=== PATIENT | female | born 1970 | race Caucasian/White ===

== ENCOUNTER 2020-05-31 17:42 | Inpatient (IN) | payer SELFPAY ==
[2020-05-31 17:48] VITALS: BP 118/59; PULSE 101; RESP 18; TEMP 36.6; O2SAT 97; BMI 23.6
[2020-05-31 17:50] VITALS: BP 147/91; PULSE 101; RESP 16; O2SAT 99
[2020-05-31 18:30] LABS: HCG Qualitative Urine. Negative (Negative)
[2020-05-31 18:49] LABS: Basophils # 0.1 10^3/uL (0.0-0.1); Basophils % 1.1 %; Eosinophils # 0.6 10^3/uL (0.0-0.8); Eosinophils % 5.3 %; Hematocrit 40.8 % (37.0-47.0); Hemoglobin 13.6 g/dL (11.5-15.3); Lymphocytes # 4.2 10^3/uL (0.8-4.8); Lymphocytes % 39.6 %; Mean Corpuscular HGB Conc 33.3 g/dL (30.0-36.0); Mean Corpuscular Hemoglobin 29.1 pg (28.0-34.0); Mean Corpuscular Volume 87.4 fL (81-99); Mean Platelet Volume 10.1 fL (7.4-10.4); Monocytes # 0.8 10^3/uL (0.2-0.9); Monocytes % 7.7 %; Neutrophils # 4.81 10^3/uL (1.8-7.7); Neutrophils % 46.1 %; Nucleated Red Blood Cells % 0 %; Platelet Count 255 10^3/cmm (130-400); Red Blood Count 4.67 10^6/uL (4.1-5.3); White Blood Count 10.5 10^3/uL (4.0-10.0)
[2020-05-31 19:17] LABS: Alanine Aminotransferase 37 U/L (0-33); Alkaline Phosphatase 121 IU/L (35-105); Anion Gap 13.6 (5-19); Aspartate Amino Transferase 50 U/L (0-32); Blood Urea Nitrogen 14 mg/dL (6-20); Calcium 8.9 mg/dL (8.5-10.5); Carbon Dioxide 25 mmol/L (22-29); Chloride 105 mmol/L (98-107); Globulin 2.9 g/dL (1.3-4.6); Glomerular Filtration Rate 106.7 mL/min (90-130); Glucose 104 mg/dL (65-115); Osmolality Calculated 291 mOsm/kg (285-295); Potassium 3.6 mmol/L (3.5-5.1); Sodium 140 mmol/L (136-145); Thyroid Stimulating Hormone 1.01 uIU/mL (0.27-4.20); Total Bilirubin 0.5 mg/dL (0.15-1.2); Total Protein 6.9 g/dL (6.6-8.7)
[2020-05-31 19:19] LABS: Acetaminophen < 5.0 ug/mL (10-30); Alcohol Level < 10 mg/dL (0-10); Salicylate < 0.3 mg/dL (3-10)
[2020-05-31 19:33] LABS: Add Urine Microscopic? NO
[2020-05-31 19:34] LABS: Blood Urine Neg (Negative); Glucose Urine UA Norm (Normal); Ketones Urine 1+ (Negative); Nitrate Urine Negative (Negative); Protein Urine Neg (Negative); Urine Appearance Clear (CLEAR); Urine Color Yellow (Yellow); pH Urine 6 (5-7)
[2020-05-31 19:35] LABS: Bilirubin Urine 1+ (Negative); Leukocyte Esterase Urine Negative (Negative); Urobilinogen Urine Norm (Negative)
[2020-05-31 19:38] VITALS: BP 110/75; PULSE 91; RESP 22; TEMP 36.9; O2SAT 97
[2020-05-31 19:43] LABS: Amphetamines Screen Urine Positive (Negative); Barbiturates Screen Urine Negative (Negative); Benzodiazepines Screen Urine Negative (Negative); Cocaine Screen Urine Negative (Negative); Opiate Screen Urine Negative (Negative); PCP Screen Urine Negative (Negative); THC Screen Urine Positive (Negative)
[2020-05-31 20:02] VITALS: BP 120/65; PULSE 94; RESP 25; TEMP 36.6; O2SAT 97
[2020-05-31] MEDS: hyDROXYzine 25 mg Capsule 50 MG PO (20:41)
[2020-05-31] MEDS: trazodone 50 mg Tablet PO (20:41)
[2020-05-31] MEDS: OLANZapine 5 mg ODT PO (20:41)
[2020-05-31 22:00] VITALS: BP 120/65; PULSE 94; RESP 25; TEMP 36.6; O2SAT 97
--- NOTE | 2020-06-01 00:06 | W.ED.PSYCH ---
HPI - Psych General: Chief Complaint: Psychiatric Symptoms Stated Complaint: SI Time Seen by Provider: 05/31/20 17:53 Source: patient Mode of arrival: ambulatory Limitations: no limitations History of Present Illness: HPI Narrative: Patient is a 50-year-old female patient who presented to the emergency department with suicidal ideation. She states that her plan is to jump in front of a moving diesel truck and be killed. She admits to auditory and visual hallucinations. She says she thought the visual hallucinations were spirits initially. The auditory hallucinations are telling her that she will never get better. She does admits to methamphetamine and marijuana use. She would like some help as she thinks she is overwhelmed now. complaint: suicidal ideation and feels depressed Duration: constant and getting worse History of same: Yes Relieving factors: none Exacerbating factors: drug use Context: recent drug abuse Associated psychiatric symptoms: depression and suicidal ideation Associated symptoms: Reports auditory hallucinations, visual hallucinations, depression and suicidal ideation; Deny delusions, homicidal ideation or racing thoughts Treatments prior to arrival: none If self harm: admits thoughts of self harm and has plan Details of plan: Plans to jump in front of a diesel truck Review of Systems General: Reports: 10 or more systems reviewed and unremarkable except in HPI and below Const: Denies: fever(s), chills or body aches Card: Denies: palpitations, irregular heart rhythm, edema or swelling of feet/ankles Resp: Denies: dyspnea, productive cough or non-productive cough GI: Denies: abdominal pain, nausea or vomiting : Denies: flank pain, difficulty voiding, dysuria, urinary frequency, urinary urgency or urinary hesitancy Musc: Denies: neck pain, back pain or extremity swelling Skin/Breast: Denies: rash, pruritus or erythema Neuro: Denies: headache(s), numbness in extremities or weakness in extremities Psych: Reports: depression, visual hallucinations, auditory hallucinations and suicidal ideation; Denies: homicidal ideation Endo: Denies: polyuria, polydipsia or tired all the time PFS ED PFSH: Social History (Reviewed 06/01/20 @ 00:08 by Michael Clement MD, [facility] [place]) Smoking and tobacco status: current every day smoker Alcohol intake: former Female Reproductive History: Date of last menstrual period: 04/11/17 Physical Exam Const: COMMON NORMALS: no acute distress, average body habitus, patient oriented x3, no limitations, healthy appearing, alert and well nourished HENMT: COMMON NORMALS: normocephalic, atraumatic and moist oral mucous membranes HEAD & SCALP: normocephalic and atraumatic Neck/C-Spine: COMMON NORMALS: no meningeal signs and no JVD Resp: COMMON NORMALS: normal respiratory effort, No retractions, No use of accessory muscles, clear to auscultation bilaterally and percussion normal AUSCULTATION: clear to auscultation bilaterally PERCUSSION: percussion normal Cardio: COMMON NORMALS: no JVD, regular rate, regular rhythm, S1 normal heart sound present, S2 normal heart sound present, No gallops present (Cardio), No clicks present (Cardio), No murmurs present (Cardio), No rub (Cardio) and Peripheral pulses 2+ throughout RATE: regular rate RHYTHM: regular rhythm HEART SOUNDS: S1 normal heart sound present and S2 normal heart sound present PERIPHERAL PULSES: Peripheral pulses 2+ throughout GI: COMMON NORMALS: Normal to inspection, nondistended, normoactive bowel sounds present, Soft to palpation, non-tender, No hepatosplenomegaly present, no masses and no bruits PALPATION: Yes Soft to palpation and Yes No hepatosplenomegaly present Extremity: COMMON NORMALS: normal to inspection, full ROM, capillary refill normal, no calf tenderness and no pedal edema Neuro: COMMON NORMALS: patient oriented x3 SENSORIUM/ORIENTATION: Yes alert MENINGEAL SIGNS: Yes no meningeal signs Psych: ATTITUDE: Yes bizarre ACTIVITY/MOTOR BEHAVIOR: Yes appropriate eye contact, Yes fidgeting and Yes hyperactivity SPEECH: Yes excessive THOUGHT CONTENT: No delusions Skin: COMMON NORMALS: no rashes or lesions noted, no wounds, turgor normal, no jaundice, no petechiae and no mottling GENERAL SKIN EXAM: no rashes or lesions noted and turgor normal MDM - Psych MDM Narrative: Medical decision making narrative: 50-year-old female patient to the emergency department with suicidal ideation. She is medically cleared and admitted to the neuropsychiatric unit for further evaluation and management. Medical Records: Attestation: I reviewed the patient's medical records. Lab Data: Attestation: I reviewed the patient's lab results. Labs: Lab Results 05/31/20 05/31/20 05/31/20 Range/Units 18:02 18:22 18:22 WBC (4.0-10.0) 10^3/ uL RBC (4.1-5.3) 10^6/u L Hgb (11.5-15.3) g/dL Hct (37.0-47.0) % MCV (81-99) fL MCH (28.0-34.0) pg MCHC (30.0-36.0) g/dL RDW (12.1-15.1) % Plt Count (130-400) 10^3/c mm MPV (7.4-10.4) fL Neut % (Auto) % Lymph % (Auto) % [place] % (Auto) % Eos % (Auto) % Baso % (Auto) % Neut # (Auto) (1.8-7.7) 10^3/u L Lymph # (Auto) (0.8-4.8) 10^3/u L [place] # (Auto) (0.2-0.9) 10^3/u L Eos # (Auto) (0.0-0.8) 10^3/u L Baso # (Auto) (0.0-0.1) 10^3/u L Nucleated RBC % (a uto) % Nucleated RBCs # /100WBC Sodium (136-145) mmol/L Potassium (3.5-5.1) mmol/L Chloride (98-107) mmol/L Carbon Dioxide (22-29) mmol/L Anion Gap (5-19) BUN (6-20) mg/dL Creatinine (0.5-0.9) mg/dL GFR Calculation (90-130) mL/min Glucose (65-115) mg/dL Calculated Osmolal ity (285-295) mOsm/k g Calcium (8.5-10.5) mg/dL Total Bilirubin (0.15-1.2) mg/dL AST (0-32) U/L ALT (0-33) U/L Alkaline Phosphata se (35-105) IU/L Total Protein (6.6-8.7) g/dL Albumin (3.5-5.2) g/dL Globulin (1.3-4.6) g/dL TSH (0.27-4.20) uIU/ mL HCG, Qual Negative (Negative) Urine Color Yellow (Yellow) Urine Appearance Clear (CLEAR) Urine pH 6 (5-7) Ur Specific Gravit y 1.020 (1.005-1.030) Urine Protein Neg (Negative) Urine Glucose (UA) Norm (Normal) Urine Ketones 1+ H (Negative) Urine Blood Neg (Negative) Urine Nitrate Negative (Negative) Urine Bilirubin 1+ H (Negative) Urine Urobilinogen Norm (Negative) mg/dL Ur Leukocyte Vania ase Negative (Negative) Salicylates (3-10) mg/dL Urine Opiates Scre en Negative (Negative) ng/mL Acetaminophen (10-30) ug/mL Ur Barbiturates Sc reen Negative (Negative) ng/mL Ur Phencyclidine S crn Negative (Negative) ng/mL Ur Amphetamines Sc reen Positive H (Negative) ng/mL U Benzodiazepines Scrn Negative (Negative) ng/mL Urine Cocaine Scre en Negative (Negative) ng/mL U Marijuana (THC) Screen Positive H (Negative) ng/mL Ethyl Alcohol (0-10) mg/dL 05/31/20 05/31/20 Range/Units 18:37 18:37 WBC 10.5 H (4.0-10.0) 10^3/ uL RBC 4.67 (4.1-5.3) 10^6/u L Hgb 13.6 (11.5-15.3) g/dL Hct 40.8 (37.0-47.0) % MCV 87.4 (81-99) fL MCH 29.1 (28.0-34.0) pg MCHC 33.3 (30.0-36.0) g/dL RDW 13.0 (12.1-15.1) % Plt Count 255 (130-400) 10^3/c mm MPV 10.1 (7.4-10.4) fL Neut % (Auto) 46.1 % Lymph % (Auto) 39.6 % [place] % (Auto) 7.7 % Eos % (Auto) 5.3 % Baso % (Auto) 1.1 % Neut # (Auto) 4.81 (1.8-7.7) 10^3/u L Lymph # (Auto) 4.2 (0.8-4.8) 10^3/u L [place] # (Auto) 0.8 (0.2-0.9) 10^3/u L Eos # (Auto) 0.6 (0.0-0.8) 10^3/u L Baso # (Auto) 0.1 (0.0-0.1) 10^3/u L Nucleated RBC % (a uto) 0 % Nucleated RBCs # 0.0 /100WBC Sodium 140 (136-145) mmol/L Potassium 3.6 (3.5-5.1) mmol/L Chloride 105 (98-107) mmol/L Carbon Dioxide 25 (22-29) mmol/L Anion Gap 13.6 (5-19) BUN 14 (6-20) mg/dL Creatinine 0.6 (0.5-0.9) mg/dL GFR Calculation 106.7 (90-130) mL/min Glucose 104 (65-115) mg/dL Calculated Osmolal ity 291 (285-295) mOsm/k g Calcium 8.9 (8.5-10.5) mg/dL Total Bilirubin 0.5 (0.15-1.2) mg/dL AST 50 H (0-32) U/L ALT 37 H (0-33) U/L Alkaline Phosphata se 121 H (35-105) IU/L Total Protein 6.9 (6.6-8.7) g/dL Albumin 4.0 (3.5-5.2) g/dL Globulin 2.9 (1.3-4.6) g/dL TSH 1.01 (0.27-4.20) uIU/ mL HCG, Qual (Negative) Urine Color (Yellow) Urine Appearance (CLEAR) Urine pH (5-7) Ur Specific Gravit y (1.005-1.030) Urine Protein (Negative) Urine Glucose (UA) (Normal) Urine Ketones (Negative) Urine Blood (Negative) Urine Nitrate (Negative) Urine Bilirubin (Negative) Urine Urobilinogen (Negative) mg/dL Ur Leukocyte Vania ase (Negative) Salicylates < 0.3 L (3-10) mg/dL Urine Opiates Scre en (Negative) ng/mL Acetaminophen < 5.0 L (10-30) ug/mL Ur Barbiturates Sc reen (Negative) ng/mL Ur Phencyclidine S crn (Negative) ng/mL Ur Amphetamines Sc reen (Negative) ng/mL U Benzodiazepines Scrn (Negative) ng/mL Urine Cocaine Scre en (Negative) ng/mL U Marijuana (THC) Screen (Negative) ng/mL Ethyl Alcohol < 10 (0-10) mg/dL Discharge Plan Discharge Patient Disposition: Admitted As Inpatient Admit Provider: Good Kaur Clinical Impression: Suicidal ideation, Drug-induced psychotic disorder Condition: Stable Coding Level of Care Code ED Respiratory Assistant for Maxi Decker
[2020-06-01] MEDS: acetaminophen 325 mg Tablet 650 MG PO (02:22)
[2020-06-01 02:39] VITALS: BMI 23.6
[2020-06-01 06:00] VITALS: BP 97/60; PULSE 71; RESP 16; TEMP 36.6; O2SAT 95
--- NOTE | 2020-06-01 11:24 | P.HP_ITS ---
Providers/Chief Complaint Admitting Physician: Good Kaur DO Chief Complaint: SI HPI NPU History of Present Illness Katelin oRberts is a 50 year old female with reported past history of depression presented to the emergency department with suicidal ideation with plan to jump in front of a truck. Patient was positive for methamphetamine and THC on her urine drug screen at the time of initial evaluation. Emergency department medical evaluation was otherwise unremarkable. Patient reports longstanding depressive symptoms for several years but has been untreated for the past 8 years when she last took psychiatric medication was following up at [facility] [place]. Records are not available for these encounters. 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 Patient continues to report depressive symptoms, decreased energy and interest, low mood states, decreased appetite secondary to low mood although she currently reports increased appetite. Patient currently denies any suicidal ideation but reports intermittent suicidal ideation in the context of her ongoing depressive symptoms. Patient reports perceptual disturbances in the context of substance use but it is unclear with regards to any baseline auditory or visual hallucinations or delusions outside the use of substances. Patient is unable to communicate any past manic or hypomanic episodes outside the use of any substances. Patient reports traumatic experiences but denies any past or recent trauma related symptoms. Per above, patient has been off any medication for the past 8 years and has not been in contact with mental health. Review of Systems General: Reports: 10 or more systems reviewed and unremarkable except in HPI and below Meds NPU Home Medications Medication Instructions Recorded Confirmed Last Taken Type No Known Home Medications 05/31/19 05/31/20 Unknown History Allergies Allergy/AdvReac Type Severity Reaction Status Date / Time No Known Allergies Allergy Verified 07/25/19 15:47 PFSH NPU PFSH: Social History Smoking and tobacco status: current every day smoker Alcohol intake: former Other Psychiatric History: Other Psychiatric History: Last contact with mental health was in 2012 for medication management at [facility] [place] Reports past psychiatric hospitalizations with last psychiatric hospitalization several years ago Reports first suicide attempt at age 22 with attempted overdose, states last suicide attempt was in the past week Mental Status Exam MSE Comments: Tired appearing, disheveled, unkempt, appears older than stated age, long hair pulled back, calm, cooperative, good eye contact Psychomotor activity is neither increased nor decreased, no agitation Speech is somewhat slow, normal volume, spontaneous, fair articulation, not pressured I am depressed, congruent affect, not labile Alert and oriented to person, place, time, situation Memory and concentration appear to be fair to intact per interview Thought process, linear, no flight of ideas, no looseness of associations Thought content, no delusions, no hallucinations, no suicidal or homicidal ideation Insight and judgment appear to be fair Vitals/I&O/Wt Last Vital Signs Temp 97.8 F 06/01/20 06:00 Pulse 71 06/01/20 06:00 Resp 16 06/01/20 06:00 BP 97/60 06/01/20 06:00 Pulse Ox 95 06/01/20 06:00 Weight last 48 hrs Weight 53.07 kg Weight 53.07 kg Data NPU : 05/31/20 18:37 05/31/20 18:37 A&P Assessment and plan (1) Suicidal ideation: Status: Acute (2) Depressive disorder: Status: Acute (3) Polysubstance abuse: Status: Acute Additional A&P Information Ongoing depressive symptoms in the context of recent suicide attempt, suicidal ideation, near daily use of methamphetamine and cannabis, last treatment for depression with medication over 8 years ago, reports significant impairment secondary to depressive symptoms and substance use. INVOLUNTARY ADMIT to inpatient psychiatry START citalopram 10 mg daily targeting depressive symptoms Encourage patient to participate in unit activities to include group sessions, unit milieu Coordinate with social director for post discharge psychiatric and substance follow-up Involuntary Hold Information 96 Hour Hold: 96 Hour Involuntary Admission: Yes 96 Hour Hold Ending Date: 06/06/20 96 Hour Hold Ending Time: 00:01 Attestations NPU Medical Necessity Statement*: Psychiatric hospitalization required for observation for return of any suicidal ideation, behaviors as well as medication stabilization and coordination for safe discharge Anticipate hospital stay to exceed 2 midnights Time Spent in Patient Care: Greater than 35 minutes (>than 50% of time spent in counselling and/or direct pt care on unit) . Coding Level of Care Code Acute Jet Aircraft Servicer for Maxi Fwd Diagnoses Suicidal ideation R45.851 Depressive disorder F32.9 Polysubstance abuse F19.10
[2020-06-01] MEDS: citalopram 20 mg Tablet 10 MG PO (11:36)
[2020-06-01 13:04] VITALS: BP 101/73; PULSE 71; RESP 18; TEMP 36.5
[2020-06-01 19:59] VITALS: BP 109/67; PULSE 81; RESP 18; TEMP 37.2; O2SAT 97
[2020-06-02 06:00] VITALS: BP 113/74; PULSE 72; RESP 19; TEMP 36.5; O2SAT 96
[2020-06-02] MEDS: citalopram 20 mg Tablet 10 MG PO (08:26)
--- NOTE | 2020-06-02 13:15 | P.PN_ITS ---
Subjective NPU Subjective: Interval history: Reports some improvement although intermittent depressive symptoms exacerbated by ongoing life stress to include current unstable living arrangement. Denies any interval suicidal ideation Reports being compliant with her medication, denies any medication side effects Denies any interval psychotic symptoms. No reported interval behavioral disturbances Mental Status Exam MSE Comments: Appears older than stated age, appropriately groomed and dressed, calm, cooperative, good eye contact Psychomotor activity is somewhat decreased, no agitation Speech is somewhat slow, normal volume, spontaneous, fair articulation, not pressured I am okay, constricted affect, not labile Alert and oriented to person, place, time, situation Memory and concentration appear to be fair to intact per interview Thought process, linear, no flight of ideas, no looseness of associations Thought content, no delusions, no hallucinations, no suicidal or homicidal ideation Insight and judgment appear to be fair Vitals/I&O/Wt Last Vital Signs Temp 97.7 F 06/02/20 06:00 Pulse 72 06/02/20 06:00 Resp 19 H 06/02/20 06:00 BP 113/74 06/02/20 06:00 Pulse Ox 96 06/02/20 06:00 Weight last 48 hrs Weight 53.07 kg Weight 53.07 kg Data NPU : 05/31/20 18:37 05/31/20 18:37 A&P Assessment and plan (1) Suicidal ideation: Status: Acute (2) Depressive disorder: Status: Acute (3) Polysubstance abuse: Status: Acute Additional A&P Information Intermittent depressive symptoms, denies any interval suicidal ideation, continues to have unstable post discharge living arrangement, likely benefit from post discharge substance treatment CONTINUE current medication, continue to monitor Continue to coordinate with foster care social worker for post discharge follow-up Involuntary Hold Information 96 Hour Hold: 96 Hour Involuntary Admission: Yes 96 Hour Hold Ending Date: 06/06/20 96 Hour Hold Ending Time: 00:01 Attestations NPU Medical Necessity Statement*: Continues require psychiatric hospitalization for medication stabilization, coordination for safe discharge Coding Level of Care Code Acute Import Export Coordinator for Maxi Decker Diagnoses Suicidal ideation R45.851 Depressive disorder F32.9 Polysubstance abuse F19.10
[2020-06-02 14:00] VITALS: BP 102/62; PULSE 85; RESP 20; TEMP 36.6; O2SAT 95
--- NOTE | 2020-06-02 17:59 | PC.RESP ---
Smoking Cessation information sent to patient.
[2020-06-02 19:36] VITALS: BP 114/74; PULSE 81; RESP 18; TEMP 37.3; O2SAT 96
[2020-06-02] MEDS: trazodone 50 mg Tablet PO (20:59)
[2020-06-02] MEDS: hyDROXYzine 25 mg Capsule 50 MG PO (20:59)
[2020-06-03 06:00] VITALS: BP 116/72; PULSE 77; RESP 18; TEMP 36.7; O2SAT 95
[2020-06-03] MEDS: citalopram 20 mg Tablet 10 MG PO (07:22)
--- NOTE | 2020-06-03 10:38 | PM.NDC ---
Diagnoses at Discharge Discharge Diagnosis (1) Suicidal ideation: Status: Acute (2) Depressive disorder: Status: Acute (3) Polysubstance abuse: Status: Acute Reason for Visit Reason for Visit: SI Hospital Course Hospital Course 50-year-old female with reported past history of depression in the context of near daily methamphetamine use over the past 8 years presented to the emergency department with suicidal ideation with plan to jump in front of a truck. Patient's urine drug screen at the time of initial evaluation was positive for methamphetamine. Patient denied any current perceptual disturbances but reports past auditory and visual hallucinations in the context of methamphetamine use. Patient continued to report depressive symptoms at the time of her initial evaluation and was started on citalopram 10 mg daily targeting her depressive symptoms which she tolerated well with no reports of any medication side effects. Patient states that she had been off of any medication for almost 8 years since her last contact with mental health at [facility]. Patient reconstituted quickly reporting improvement of her depressive symptoms as well as improvement in her sleep and appetite. Patient participated in unit milieu with no reports of any behavioral disturbances. She was not suicidal at the time of discharge and did not appear to pose an imminent threat of harm to self or others. Low to moderate risk of harm to self given no current suicidal ideation and no report of any current psychiatric symptoms although patient's risk may continue to be elevated if she continues to be noncompliant with her medication, medication management follow-up or continues to use illicit substances or alcohol leading to unexpected, impulsive behavior. Risk mitigation included psychiatric hospitalization for observation for any return of suicidal ideation or suicidal behaviors as well as medication stabilization and recommendation to abstain from use of substances and alcohol and coordinating for safe discharge. Patient was able to communicate her understanding of the need to abstain from the use of substances and alcohol as well as the need for compliance with her medication, medication management follow-up as well as substance counseling in order to further mitigate her risk of harm to self and others. Involuntary Hold Information 96 Hour Hold: 96 Hour Involuntary Admission: Yes 96 Hour Hold Ending Date: 06/06/20 96 Hour Hold Ending Time: 00:01 Mental Status Exam MSE Comments: Lying in bed comfortably, appears older than stated age, appropriately groomed and dressed, calm, cooperative, good eye contact Psychomotor activity is somewhat decreased, no agitation Speech is somewhat slow, normal volume, spontaneous, fair articulation, not pressured I feel good, full range, not labile Alert and oriented to person, place, time, situation Memory and concentration appear to be intact per interview Thought process, linear, no flight of ideas, no looseness of associations Thought content, no delusions, no hallucinations, no suicidal or homicidal ideation Insight and judgment appear to be fair Discharge Data Vitals: Last Vital Signs Temp 98.1 F 06/03/20 06:00 Pulse 77 06/03/20 06:00 Resp 18 06/03/20 06:00 BP 116/72 06/03/20 06:00 Pulse Ox 95 06/03/20 06:00 Discharge Plan Discharge Patient Disposition: Home Condition: Stable Prescriptions: New citalopram 20 mg Tablet 10 mg PO DAILY Qty: 30 RF: 0 No Action No Known Home Medications RF: 0 Discharge Orders: Discharge Order (Routine); Ordered 06/03/20 Ordered By: Good Kaur Discharge Diet: Regular Discharge Activity: Resume usual activity Discharge Attestations NPU Time Spent in Discharge Care*: greater than 30 min Status at Discharge: Cognitive status at discharge: cognitively intact, Behavioral status at discharge: cooperative, Functional status at discharge: independent ambulation Overall status at discharge: patient is back to baseline Coding Level of Care Code Acute Marketing Operations Assistant for Maxi Fwjill Diagnoses Suicidal ideation R45.851 Depressive disorder F32.9 Polysubstance abuse F19.10
[2020-06-03 10:49] VITALS: BP 116/72; PULSE 77; RESP 18; TEMP 36.7; O2SAT 95
== END 2020-06-03 10:58 | disposition home or self-care (01) | DRG 881 ==
LOC: ER 17:55 → NP 19:46
PROVIDERS: Admitting Provider Psychiatry & Neurology Psychiatry; Emergency Provider Family Medicine; Visit Provider Psychiatry & Neurology Psychiatry
DX: F32.9 Major depressive disorder, single episode, unspecified (principal); R45.851 Suicidal ideations; F15.10 Other stimulant abuse, uncomplicated; F12.10 Cannabis abuse, uncomplicated; F17.210 Nicotine dependence, cigarettes, uncomplicated; F10.21 Alcohol dependence, in remission
CPT/HCPCS: 36415; 80053; 80306; 80307; 81003; 81025; 84443; 85025; 99285

== ENCOUNTER 2021-04-21 11:55 | Emergency (ER) | payer SELFPAY ==
[2021-04-21 12:32] VITALS: BP 101/65; PULSE 79; RESP 15; TEMP 37; O2SAT 98; BMI 23.3
[2021-04-21 14:50] LABS: Hemoglobin 13.8 g/dL (11.5-15.3); Mean Corpuscular HGB Conc 32.9 g/dL (30.0-36.0); Mean Corpuscular Hemoglobin 29.7 pg (28.0-34.0); Mean Corpuscular Volume 90.3 fl (81-99); Platelet Count 338 10^3/cmm (130-400); Red Blood Count 4.65 10^6/uL (4.1-5.3); Red Cell Distribution Width 12.6 % (12.1-15.1); White Blood Count 10.3 10^3/uL (4.0-10.0)
[2021-04-21 14:52] VITALS: BP 120/85; PULSE 81; RESP 16; O2SAT 97
--- NOTE | 2021-04-21 14:54 | W.ED.ABDPA2 ---
Documented by User: LARRY Baires 04/22/21 07:06 HPI - Abdominal Pain General: Chief Complaint: Abdominal Pain Stated Complaint: Upper ABD Pain Time Seen by Provider: 04/21/21 14:46 History of Present Illness: HPI narrative: Patient complains about pain over liver area times years but worse the last few weeks. Patient just checked in residential treatment facility for methamphetamine abuse. Patient has history of hepatitis C. Denies any fever chills nausea vomiting or other related problem MD elicited complaint: abdominal pain Pertinent past history: other (Hep C and drug abuse) Onset (ago): year(s) Pain Consistency: intermittent Location: RUQ Severity: moderate Quality: aching Radiation: none Migration to: no migration Exacerbating factors: movement Relieving factors: rest Associated Symptoms: Reports no associated symptoms; Denies chills, fever(s), nausea and vomiting Related Data: Date of Last Menstrual Period: 04/11/17 Review of Systems Const: Denies: fever(s), chills or body aches Eyes: Denies: change in vision or blurry vision ENMT: Denies: throat pain or nasal congestion Card: Denies: chest pain or dyspnea on exertion Resp: Denies: dyspnea, productive cough or non-productive cough GI: Reports: abdominal pain; Denies: nausea or vomiting Musc: Denies: extremity pain Skin/Breast: Denies: rash Neuro: Denies: headache(s) Psych: Denies: anxiety or depression Frank/Lymph: Denies: easy bruising PFSH ED PFSH: Social History Smoking and tobacco status: current every day smoker Alcohol intake: former Female Reproductive History: Date of last menstrual period: 04/11/17 Physical Exam Const: COMMON NORMALS: no acute distress, average body habitus and patient oriented x3 HENMT: COMMON NORMALS: normocephalic HEAD & SCALP: normal to inspection and normocephalic FACE & SINUS: normal facial exam Eye: COMMON NORMALS: conjunctivae normal GENERAL EYE: appearance normal, both eyes and all related structures CONJUNCTIVA: Yes conjunctivae normal Neck/C-Spine: COMMON NORMALS: no JVD Chest: COMMONS NORMALS: normal inspection of the chest Resp: COMMON NORMALS: normal respiratory effort and clear to auscultation bilaterally AUSCULTATION: clear to auscultation bilaterally Cardio: COMMON NORMALS: no JVD, regular rate and regular rhythm RATE: regular rate RHYTHM: regular rhythm GI: INSPECTION: Yes normal to inspection AUSCULTATION: Yes normoactive bowel sounds PALPATION: Yes Tenderness to palpation present (GI) Details: RUQ Extremity: COMMON NORMALS: normal to inspection and full ROM Neuro: COMMON NORMALS: patient oriented x3 Course Vital Signs: Vital signs: Vital Signs Temperature 98.6 F 04/21/21 12:32 Pulse Rate 81 04/21/21 14:52 Respiratory Rate 16 04/21/21 14:52 Blood Pressure 120/85 04/21/21 14:52 Pulse Oximetry 97 04/21/21 14:52 MDM - Abdominal Pain MDM Narrative: Medical decision making narrative: Patient presents with right upper quadrant pain times months. Been worse last couple weeks. Patient just checked into rehabilitation treatment facility this week for treatment of methamphetamine abuse. Patient says it is tender to touch under her ribs on the right side. Patient says she is also positive hepatitis C which is chronic. Patient appearing acute distress. Laboratory studies positive for mild alkaline phos increase. Rest studies negative. Patient prescribed a medication for discomfort , continue rehabilitation treatment follow-up with internal medicine doctor to see about treatment for chronic hep C which her counselor said they are going to be making her appointment. Lab Data: Labs: Lab Results 04/21/21 04/21/21 04/21/21 14:32 14:32 15:10 WBC 10.3 10^3/uL H 10 ^3/uL (4.0-10.0) RBC 4.65 10^6/uL 10^6 /uL (4.1-5.3) Hgb 13.8 g/dL g/dL (11.5-15.3) Hct 42.0 % % (37.0-47.0) MCV 90.3 fl fl (81-99) MCH 29.7 pg pg (28.0-34.0) MCHC 32.9 g/dL g/dL (30.0-36.0) RDW 12.6 % % (12.1-15.1) Plt Count 338 10^3/cmm 10^3 /cmm (130-400) MPV 10.0 fL fL (7.4-10.4) Lymph % (Auto) Not Reportable [place] % (Auto) Not Reportable Lymph # (Auto) Not Reportable [place] # (Auto) Not Reportable Total Counted 100 (0-100) Atypical Lymphs % 19.0 % H % (0-5) Absolute Neutrophi ls 4.5 10^3/cmm 10^3 /cmm (1.4-6.5) Segmented Neutroph ils 41 % % Abs Segm Neuts (Ma n) 4.2 10/cmm 10/cmm (1.6-7.1) Band Neutrophils 3.0 % % Abs Band Neuts (Ma n) 0.3 10^3/cmm 10^3 /cmm (0.0-1.2) Absolute Lymphocyt es 4.8 10^3/cmm H 10 ^3/cmm (1.2-3.4) Lymphocytes (Manua l) 28 % % Monocytes (Manual) 5.0 % % Absolute Monocytes 0.5 10^3/cmm 10^3 /cmm (0.1-0.6) Eosinophils (Manua l) 4 % % Absolute Eosinophi ls 0.4 10^3/cmm 10^3 /cmm (0.0-0.7) Basophils (Manual) 0.0 % % Absolute Basophils 0.0 10^3/cmm 10^3 /cmm (0.0-0.2) Smudge Cells 1+ H Platelet Estimate Normal (Normal) Sodium 137 mmol/L mmol/L (136-145) Potassium 4.3 mmol/L mmol/L (3.5-5.1) Chloride 102 mmol/L mmol/L (98-107) Carbon Dioxide 24 mmol/L mmol/L (22-29) Anion Gap 15.3 (5-19) BUN 10 mg/dL mg/dL (6-20) Creatinine 0.4 mg/dL L mg/dL (0.5-0.9) GFR Calculation 169.7 mL/min H mL /min (90-130) Glucose 100 mg/dL mg/dL (65-115) Calculated Osmolal ity 283 mOsm/kg L mOs m/kg (285-295) Calcium 8.5 mg/dL mg/dL (8.5-10.5) Total Bilirubin 0.2 mg/dL mg/dL (0.15-1.2) AST 29 U/L U/L (0-32) ALT 23 U/L U/L (0-33) Alkaline Phosphata se 124 IU/L H IU/L (35-105) Total Protein 6.1 g/dL L g/dL (6.6-8.7) Albumin 3.9 g/dL g/dL (3.5-5.2) Globulin 2.2 g/dL g/dL (1.3-4.6) Lipase 25 U/L U/L (13-60) Urine Color Yellow (Yellow) Urine Appearance Clear (CLEAR) Urine pH 7 (5-7) Ur Specific Gravit y 1.015 (1.005-1.030) Urine Protein Neg (Negative) Urine Glucose (UA) Norm (Normal) Urine Ketones Negative (Negative) Urine Blood Neg (Negative) Urine Nitrate Negative (Negative) Urine Bilirubin Neg (Negative) Urine Urobilinogen Neg mg/dL mg/dL (Negative) Ur Leukocyte Vania ase Negative (Negative) Discharge Plan Discharge Patient Disposition: Home Clinical Impression: Abdominal pain Qualifiers: Abdominal location: right upper quadrant Qualified Code(s): R10.11 - Right upper quadrant pain Hepatitis C Qualifiers: Viral hepatitis chronicity: chronic Hepatic coma status: without hepatic coma Qualified Code(s): B18.2 - Chronic viral hepatitis C Condition: Stable Prescriptions: New Celebrex 100 mg capsule 100 mg PO BID Qty: 20 RF: 0 No Action clonidine HCl 0.1 mg Tablet 0.1 mg PO BEDTIME PRN (Reason: Sleep) RF: 0 hydroxyzine pamoate 50 mg Capsule 50 mg PO TID PRN (Reason: Anxiety) RF: 0 olanzapine 10 mg Tablet 10 mg PO BEDTIME RF: 0 baclofen 10 mg Tablet 10 mg PO TID PRN (Reason: Muscle Spasm) RF: 0 gabapentin 300 mg Capsule 300 mg PO TID RF: 0 Discharge Orders: Discharge ED (Routine); Ordered 04/21/21 Ordered By: Nithin Osorio Discharge Diet: Usual diet Discharge Activity: Resume usual activity Patient Instructions: Abdominal Pain (ED), Opioid Safety Activity Restrictions/Additional Instructions: Follow-up with medical provider as directed. Take medications as prescribed. Return to the ER or your medical provider if condition worsens. Please read and understand discharge instructions. If any questions ask please. Follow-up with internal medicine to see about getting medicine to help with chronic hepatitis C. Coding Level of Care Code ED Machine Heel Builder for Chg Fwd Exam Comprehensive Documented by User: Perry Marino DO 04/22/21 07:14 HPI - Abdominal Pain General: Chief Complaint: Abdominal Pain Stated Complaint: Upper ABD Pain Time Seen by Provider: 04/21/21 14:46 PFSH ED PFSH: Social History Smoking and tobacco status: current every day smoker Alcohol intake: former Course Vital Signs: Vital signs: Vital Signs Temperature 98.6 F 04/21/21 12:32 Pulse Rate 81 04/21/21 14:52 Respiratory Rate 16 04/21/21 14:52 Blood Pressure 120/85 04/21/21 14:52 Pulse Oximetry 97 04/21/21 14:52 MDM - Abdominal Pain MDM Narrative: Medical decision making narrative: Chart reviewed and patient discussed with midlevel. Agree with assessment and plan. Lab Data: Labs: Lab Results 04/21/21 04/21/21 04/21/21 14:32 14:32 15:10 WBC 10.3 10^3/uL H 10 ^3/uL (4.0-10.0) RBC 4.65 10^6/uL 10^6 /uL (4.1-5.3) Hgb 13.8 g/dL g/dL (11.5-15.3) Hct 42.0 % % (37.0-47.0) MCV 90.3 fl fl (81-99) MCH 29.7 pg pg (28.0-34.0) MCHC 32.9 g/dL g/dL (30.0-36.0) RDW 12.6 % % (12.1-15.1) Plt Count 338 10^3/cmm 10^3 /cmm (130-400) MPV 10.0 fL fL (7.4-10.4) Lymph % (Auto) Not Reportable [place] % (Auto) Not Reportable Lymph # (Auto) Not Reportable [place] # (Auto) Not Reportable Total Counted 100 (0-100) Atypical Lymphs % 19.0 % H % (0-5) Absolute Neutrophi ls 4.5 10^3/cmm 10^3 /cmm (1.4-6.5) Segmented Neutroph ils 41 % % Abs Segm Neuts (Ma n) 4.2 10/cmm 10/cmm (1.6-7.1) Band Neutrophils 3.0 % % Abs Band Neuts (Ma n) 0.3 10^3/cmm 10^3 /cmm (0.0-1.2) Absolute Lymphocyt es 4.8 10^3/cmm H 10 ^3/cmm (1.2-3.4) Lymphocytes (Manua l) 28 % % Monocytes (Manual) 5.0 % % Absolute Monocytes 0.5 10^3/cmm 10^3 /cmm (0.1-0.6) Eosinophils (Manua l) 4 % % Absolute Eosinophi ls 0.4 10^3/cmm 10^3 /cmm (0.0-0.7) Basophils (Manual) 0.0 % % Absolute Basophils 0.0 10^3/cmm 10^3 /cmm (0.0-0.2) Smudge Cells 1+ H Platelet Estimate Normal (Normal) Sodium 137 mmol/L mmol/L (136-145) Potassium 4.3 mmol/L mmol/L (3.5-5.1) Chloride 102 mmol/L mmol/L (98-107) Carbon Dioxide 24 mmol/L mmol/L (22-29) Anion Gap 15.3 (5-19) BUN 10 mg/dL mg/dL (6-20) Creatinine 0.4 mg/dL L mg/dL (0.5-0.9) GFR Calculation 169.7 mL/min H mL /min (90-130) Glucose 100 mg/dL mg/dL (65-115) Calculated Osmolal ity 283 mOsm/kg L mOs m/kg (285-295) Calcium 8.5 mg/dL mg/dL (8.5-10.5) Total Bilirubin 0.2 mg/dL mg/dL (0.15-1.2) AST 29 U/L U/L (0-32) ALT 23 U/L U/L (0-33) Alkaline Phosphata se 124 IU/L H IU/L (35-105) Total Protein 6.1 g/dL L g/dL (6.6-8.7) Albumin 3.9 g/dL g/dL (3.5-5.2) Globulin 2.2 g/dL g/dL (1.3-4.6) Lipase 25 U/L U/L (13-60) Urine Color Yellow (Yellow) Urine Appearance Clear (CLEAR) Urine pH 7 (5-7) Ur Specific Gravit y 1.015 (1.005-1.030) Urine Protein Neg (Negative) Urine Glucose (UA) Norm (Normal) Urine Ketones Negative (Negative) Urine Blood Neg (Negative) Urine Nitrate Negative (Negative) Urine Bilirubin Neg (Negative) Urine Urobilinogen Neg mg/dL mg/dL (Negative) Ur Leukocyte Vania ase Negative (Negative) Discharge Plan Discharge Patient Disposition: Home Clinical Impression: Abdominal pain Qualifiers: Abdominal location: right upper quadrant Qualified Code(s): R10.11 - Right upper quadrant pain Hepatitis C Qualifiers: Viral hepatitis chronicity: chronic Hepatic coma status: without hepatic coma Qualified Code(s): B18.2 - Chronic viral hepatitis C Condition: Stable Prescriptions: New Celebrex 100 mg capsule 100 mg PO BID Qty: 20 RF: 0 No Action clonidine HCl 0.1 mg Tablet 0.1 mg PO BEDTIME PRN (Reason: Sleep) RF: 0 hydroxyzine pamoate 50 mg Capsule 50 mg PO TID PRN (Reason: Anxiety) RF: 0 olanzapine 10 mg Tablet 10 mg PO BEDTIME RF: 0 baclofen 10 mg Tablet 10 mg PO TID PRN (Reason: Muscle Spasm) RF: 0 gabapentin 300 mg Capsule 300 mg PO TID RF: 0 Discharge Orders: Discharge ED (Routine); Ordered 04/21/21 Ordered By: Nithin Osorio Discharge Diet: Usual diet Discharge Activity: Resume usual activity Patient Instructions: Abdominal Pain (ED), Opioid Safety Activity Restrictions/Additional Instructions: Follow-up with medical provider as directed. Take medications as prescribed. Return to the ER or your medical provider if condition worsens. Please read and understand discharge instructions. If any questions ask please. Follow-up with internal medicine to see about getting medicine to help with chronic hepatitis C. Coding Level of Care Code ED Machine Heel Builder for Maxi Fwd Exam Comprehensive
[2021-04-21 15:06] LABS: Alanine Aminotransferase 23 U/L (0-33); Albumin Level 3.9 g/dL (3.5-5.2); Alkaline Phosphatase 124 IU/L (35-105); Aspartate Amino Transferase 29 U/L (0-32); Blood Urea Nitrogen 10 mg/dL (6-20); Calcium 8.5 mg/dL (8.5-10.5); Carbon Dioxide 24 mmol/L (22-29); Chloride 102 mmol/L (98-107); Globulin 2.2 g/dL (1.3-4.6); Glomerular Filtration Rate 169.7 mL/min (90-130); Glucose 100 mg/dL (65-115); Lipase 25 U/L (13-60); Osmolality Calculated 283 mOsm/kg (285-295); Sodium 137 mmol/L (136-145); Total Bilirubin 0.2 mg/dL (0.15-1.2); Total Protein 6.1 g/dL (6.6-8.7)
[2021-04-21 15:08] LABS: Anion Gap 15.3 (5-19); Potassium 4.3 mmol/L (3.5-5.1)
[2021-04-21 15:14] LABS: Add Urine Microscopic? NO; Charge for UA Resulting for Rev
[2021-04-21 15:29] LABS: Bilirubin Urine Neg (Negative); Blood Urine Neg (Negative); Glucose Urine UA Norm (Normal); Ketones Urine Negative (Negative); Leukocyte Esterase Urine Negative (Negative); Nitrate Urine Negative (Negative); Protein Urine Neg (Negative); Specific Gravity, Urine 1.015 (1.005-1.030); Urine Appearance Clear (CLEAR); Urine Color Yellow (Yellow); Urobilinogen Urine Neg (Negative); pH Urine 7 (5-7)
[2021-04-21 15:46] LABS: Slide Review Slide Review Perform
[2021-04-21 15:47] LABS: Absolute Eosinophils 0.4 10^3/cmm (0.0-0.7); Absolute Neutrophil 4.5 10^3/cmm (1.4-6.5); Absolute Segmented Neutrophil 4.2 10/cmm (1.6-7.1); Band Neutrophils Absolute 0.3 10^3/cmm (0.0-1.2); Eosinophils 4 %; Lymphocytes 28 %; Lymphocytes Absolute 4.8 10^3/cmm (1.2-3.4); Monocytes Absolute 0.5 10^3/cmm (0.1-0.6); Platelet Estimate Normal (Normal); Segmented Neutrophils 41 %; Smudge Cells 1+; Total Cells Counted 100 (0-100)
[2021-04-21] MEDS: CELEcoxib 200 mg Capsule 400 MG PO (16:06)
--- NOTE | 2021-04-21 16:12 | PC.PHAR ---
medications entered are from the pts med list from [facility]
== END 2021-04-21 16:15 | disposition home or self-care (01) ==
PROVIDERS: Emergency Provider Nurse Practitioner Family
DX: R10.11 Right upper quadrant pain (principal); B18.2 Chronic viral hepatitis C; F17.210 Nicotine dependence, cigarettes, uncomplicated
CPT/HCPCS: 36415; 80053; 81003; 83690; 85007; 85025; 99283

== ENCOUNTER → 2021-10-28 11:36 | Outpatient (BNVA) | payer SELFPAY | PROVIDERS: Visit Provider Emergency Medicine | DX: H05.20 Unspecified exophthalmos (principal); R51.9 Headache, unspecified | CPT/HCPCS: 84439; 84443; 84445 ==

== ENCOUNTER → 2021-11-26 12:20 | Outpatient (BNVA) | payer SELFPAY | PROVIDERS: Visit Provider Registered Nurse | DX: Z79.899 Other long term (current) drug therapy (principal) | CPT/HCPCS: 80053; 80061; 83036; 84443 ==

== ENCOUNTER → 2021-12-14 11:06 | Outpatient (BNVA) | payer SELFPAY | PROVIDERS: Visit Provider Emergency Medicine | DX: S89.91XA Unspecified injury of right lower leg, initial encounter (principal); W19.XXXA Unspecified fall, initial encounter | CPT/HCPCS: 73562 ==

== ENCOUNTER 2022-01-11 10:35 | Outpatient (CLI) | payer MEDICAID, SELFPAY ==
--- NOTE | 2022-01-11 11:00 | CT_ITS ---
WS: [id number] CT ORBITS TECHNIQUE: Noncontrast CT of the orbits with coronal and sagittal reformatted images. CLINICAL INFORMATION: H05.20 - Unspecified exophthalmos. Graves' disease. COMPARISON: None. DLP: 449.[address] scans at [facility] use at least one of these dose optimization techniques: automated e xposure control; mA and/or kV adjustment per patient size (includes targeted exams where dose is matc hed to clinical indication); or iterative reconstruction. FINDINGS: No significant proptosis by CT criteria. Rectus muscles are within normal limits. Normal in ferior rectus and medial rectus muscle bellies. Mastoid air cells well aerated. Mild mucosal thickening in the paranasal sinuses. No evidence of acut e sinusitis. Normal posterior nasopharynx. Normal prevertebral fat. Partially visualized intracranial contents are normal. Intracranial vascular calcification. CT/CT orbit BI wo con* [id number] IMPRESSION: 1. No significant proptosis. No evidence of intraorbital or intraconal lesion. 2. Rectus muscles are within normal limits. 3. Mild mucosal thickening in the paranasal sinuses. 4. No other remarkable findings.
== END 2022-01-11 10:36 | disposition home or self-care (01) ==
LOC: RAD 10:37
PROVIDERS: Visit Provider Emergency Medicine
DX: H05.20 Unspecified exophthalmos (principal); E05.00 Thyrotoxicosis with diffuse goiter without thyrotoxic crisis or storm
CPT/HCPCS: 70480

== ENCOUNTER → 2022-05-18 12:29 | Outpatient (BNVA) | payer MEDICAID, SELFPAY | PROVIDERS: Visit Provider Internal Medicine | DX: E05.90 Thyrotoxicosis, unspecified without thyrotoxic crisis or storm (principal); H05.20 Unspecified exophthalmos | CPT/HCPCS: 80053; 84439; 84443; 84480; 85025 ==

== ENCOUNTER → 2023-07-12 12:33 | Outpatient (BNVA) | payer MEDICAID, SELFPAY | PROVIDERS: Visit Provider Emergency Medicine | DX: R30.0 Dysuria (principal) | CPT/HCPCS: 81000; 87077; 87086; 87184 ==